=== PATIENT | male | born 1950 | race Caucasian/White ===

== ENCOUNTER 2024-11-18 18:58 | Observation (INO) ==
[2024-11-18 19:06] VITALS: TEMP 97.9
[2024-11-18 19:33] LABS: iSTAT Creatinine 1.1 mg/dl (0.6-1.3); iSTAT Hemoglobin 15.3 g/dl (14.0-18.0); iSTAT Ionized Calcium 1.17 mmol/l (1.12-1.32)
[2024-11-18 19:41] LABS: Basophils # (auto) 0.02 K/uL (0.00-0.20); Basophils % (auto) 0.4 %; Eosinophils # (auto) 0.13 K/uL (0.00-0.50); Eosinophils % (auto) 2.6 %; Hematocrit (blood only) 43.7 % (42.0-52.0); Immature Granulocytes # (auto) 0.02 K/uL (0.01-0.20); Immature Granulocytes % (auto) 0.4 %; Lymphocytes # (auto) 0.87 K/uL (1.20-3.40); Lymphocytes % (auto) 17.7 %; Mean Corpuscular Hemoglobin 31.3 pg (25.0-34.0); Mean Corpuscular Hgb Conc 34.3 g/dL (32.0-36.0); Mean Platelet Volume 8.9 fL (9.4-12.4); Monocytes # (auto) 0.53 K/uL (0.11-0.59); Monocytes % (auto) 10.8 %; Neutrophils # (auto) 3.35 K/uL (1.40-6.50); Neutrophils % (auto) 68.1 %; Platelet Count 238 K/uL (130-400); RDW Coefficient of Variation 13.2 % (11.5-14.5); RDW Standard Deviation 43.9 fL (36.4-46.3); White Blood Count 4.92 K/ul (4.8-10.8)
[2024-11-18 19:55] LABS: Albumin Globulin Ratio 1.2 (0.9-2); Albumin Level 4.1 gm/dl (3.4-5.0); BUN Creatinine Ratio 17.6 (10-20); Bilirubin,Total 0.4 mg/dl (0.2-1.0); Calcium 9.1 mg/dl (8.6-10.3); Creatinine Clr Calc Pharmacy 57.6 ml/min; Globulin 3.4 gm/dl (2.5-4.0); Potassium 4.1 mmol/L (3.5-5.1); Total Protein 7.5 gm/dl (6.0-8.3)
[2024-11-18 20:02] LABS: Troponin I High Sensitivity 4.2 pg/ml (0-20)
[2024-11-18 20:04] LABS: INR 0.9 (0.9-1.1); Partial Thromboplastin Time 26 Seconds (21-31); Prothrombin Time 10.3 Seconds (9.0-12.0)
--- NOTE | 2024-11-18 20:28 | Emergency Department Note ---
Impression & Plan Stroke-like symptoms ED Provider Note NAME: DEVORA FELIX AGE: 74 SEX: Male INFORMANT: Patient and family ED PROVIDER(S): Clint Young MD CHIEF COMPLAINT: Strokelike symptoms PLAN: Disposition: Admitted Outpatient prescription management: none Referral: None MEDICAL DECISION MAKING: Patient presented for strokelike symptoms that had resolved. His physical examination was nonfocal. He was moderately hypertensive. I did obtain his last primary care visit and his blood pressure was normal at that time. Denies any history of high blood pressure. Due to the resolution of symptoms the patient was not made a stroke alert but underwent an expedited stroke workup. He had unremarkable laboratory testing. His ECG was normal. Cardiac monitoring was unremarkable. Patient underwent CT imaging of the head as well as CT angiography of the head and neck. There was findings consistent with a left carotid stenosis of about 70% per radiology. No acute findings on the dry CT of the head. Patient was initially reluctant about staying in the hospital for stroke workup. After long discussion regarding his symptomatology as well as the findings on the workup the patient agreed. Family was in support of this admission and further testing in light of his symptoms. Consultation was made with Dr. Paco Irene, [facility] hospitalist service. Case discussed and diagnostics were reviewed. Did discuss ordering an MRI to help initiate the stroke workup and this was done. Patient was given 243 mg of oral aspirin as he had already taken a baby aspirin prior to coming in to the hospital. Care/management discussed with: manager surgical Level of care consideration(s): After review of the information above and other included data, I feel the patient requires escalation of care to admission Triage Nursing notes: reviewed and agree them. Vital Signs: reviewed and remarkable for hypertension Additional History obtained from: Patient's family. There was no confusion. No facial droop. Currently patient is acting normally and without deficit. Chronic Medical/Social Conditions affecting care: none Prior/ Outside/ External records reviewed: PCP note reviewed from November 29, 2023. Mild CKD noted as a medical history. Patient is a smoker. No significant abnormalities noted on his well check. Differential Diagnosis: CVA, TIA,Infection, dehydration, metabolic abnormality, hypo/hyperglycemia, electrolyte disturbance, anemia, hypoxia, cardiac sources, intracerebral event, toxicologic, neurologic, as well as other pathologies. Diagnostics, independently interpreted by me: ECG: Twelve-lead ECG reveals normal sinus rhythm at 66 beats per minute. No evidence of pericarditis, ischemia, ectopy, or dysrhythmia. Cardiac Monitoring: Cardiac monitoring ordered by me: The patient was placed on continuous cardiac monitoring and observed. It revealed a normal sinus rhythm at 78 beats per minute without ectopy or evidence of dysrhythmia. Medical decision rules: none Imaging studies: Head CT: A noncontrast CT scan of the head was performed and was negative for tumor, fracture, intracranial hemorrhage, or other acute pathology. I refer you to the EMR for further details. HPI: 74 year old Male arrives for evaluation of strokelike symptoms. This started just after 1800 hrs. tonight and is currently resolved. Patient states that it lasted about 10 minutes. The patient also notes the following associated symptoms, right arm weakness and right-sided numbness. He was having some balance issues as well. No trauma. The patient has taken aspirin for relieving factors. Current pain is rated as 0/10. Pt denies LOC, headache, fevers, chills, diaphoresis, visual changes, neck pain, chest pain, breathing difficulties, nausea, vomiting, abdominal pain, back pain, melena, hematochezia, urinary symptoms, lymphadenopathy, rash, or other complaints.. PAST MEDICAL HISTORY: See Below, hypertension PAST SURGICAL HISTORY: See Below, SOCIAL HISTORY: See Below, former smoker HOME MEDICATIONS: See Below ALLERGIES: See Below VITALS: See Below PHYSICAL EXAMINATION: GENERAL: Awake, alert, well-appearing, in no distress HENT: Normocephalic, atraumatic. Oropharynx unremarkable. EYES: Normal conjunctiva. Sclera non-icteric. PERRLA. EOMI. NECK: Inspection normal. Non-tender. Supple. No nuchal rigidity. FROM. No masses. RESPIRATORY: Clear to auscultation. No wheezes. No rales. Normal respiratory effort. CARDIAC: Normal rate. Normal rhythm. No murmurs. No rubs. Extremities warm and well perfused. Pulses equal. No JVD. GI: Soft, non-distended. No tenderness to palpation. No rebound or guarding. No masses. RECTAL: Deferred. MUSCULOSKELETAL: Atraumatic. Chest examination reveals no tenderness. The back is symmetrical on inspection without obvious abnormality. There is no CVA tenderness to palpation. No joint edema. LOWER EXTREMITIES: Calves are equal size bilaterally and non-tender. No edema. No discoloration. NEURO: Normal sensorium. No sensory or motor deficits noted. Cranial nerves II through XII intact. Speech normal. No drift. Normal rapid alternating movements. Normal [id number]. SKIN: No rash or jaundice noted. PROCEDURES: none CRITICAL CARE: none OBSERVATION NOTE: none Past Med/Surg History Problem List (Updated 11/18/24 @ 20:28 by Clint Young MD) Stroke-like symptoms (Acute) Social History Smoking Status: Former smoker Preferred Language: Telugu Feels Safe at Home: Yes Allergies Allergies Allergy/AdvReac Type Severity Reaction Status Date / Time No Known Allergies Allergy Unverified 11/18/24 19:24 Home Meds Home Medications Medication Instructions Recorded Confirmed No Known Home Medications 11/18/24 11/18/24 Results & Data (ED) Vital Signs Vital Signs - 24 hr 11/18/24 19:01 11/18/24 19:15 11/18/24 19:18 Temperature 36.6 C Temperature Source Oral Pulse Rate 81 Pulse Rate [Apical] 85 Pulse Rate from SpO2 Sensor Pulse Rhythm Regular Pulse Strength Normal Respiratory Rate 19 20 Respiratory Effort / Characteristics Non-Labored Spontaneous Non-Labored Spontaneous Respiratory Depth Normal Normal Respiratory Pattern Regular Regular Blood Pressure 159/91 H 182/91 H Blood Pressure [Left Arm] 182/91 H Blood Pressure Mean 113 129 Blood Pressure Mean [Left Arm] 121 Blood Pressure Position Sitting Pulse Oximetry 95 98 Oxygen Delivery Method Room Air Room Air Sepsis Recent Fever Within 48 Hours No Sepsis New/Unexplained Change in Mental Status N/A Sepsis Action Taken by Nursing No Action Required 11/18/24 19:18 11/18/24 19:24 11/18/24 19:30 Temperature Temperature Source Pulse Rate 78 83 Pulse Rate [Apical] Pulse Rate from SpO2 Sensor 81 Pulse Rhythm Pulse Strength Respiratory Rate 20 Respiratory Effort / Characteristics Respiratory Depth Respiratory Pattern Blood Pressure 152/95 H Blood Pressure [Left Arm] Blood Pressure Mean 127 Blood Pressure Mean [Left Arm] Blood Pressure Position Pulse Oximetry 98 Oxygen Delivery Method Sepsis Recent Fever Within 48 Hours Sepsis New/Unexplained Change in Mental Status Sepsis Action Taken by Nursing 11/18/24 19:52 11/18/24 19:54 11/18/24 20:03 Temperature Temperature Source Pulse Rate 90 88 Pulse Rate [Apical] Pulse Rate from SpO2 Sensor 88 89 Pulse Rhythm Pulse Strength Respiratory Rate 21 22 Respiratory Effort / Characteristics Respiratory Depth Respiratory Pattern Blood Pressure 170/80 H Blood Pressure [Left Arm] Blood Pressure Mean 109 Blood Pressure Mean [Left Arm] Blood Pressure Position Pulse Oximetry 97 98 Oxygen Delivery Method Sepsis Recent Fever Within 48 Hours Sepsis New/Unexplained Change in Mental Status Sepsis Action Taken by Nursing 11/18/24 20:11 11/18/24 20:15 11/18/24 20:18 Temperature Temperature Source Pulse Rate 81 Pulse Rate [Apical] Pulse Rate from SpO2 Sensor 82 Pulse Rhythm Pulse Strength Respiratory Rate 16 Respiratory Effort / Characteristics Respiratory Depth Respiratory Pattern Blood Pressure 124/88 154/92 H Blood Pressure [Left Arm] Blood Pressure Mean 96 122 Blood Pressure Mean [Left Arm] Blood Pressure Position Pulse Oximetry 97 Oxygen Delivery Method Sepsis Recent Fever Within 48 Hours Sepsis New/Unexplained Change in Mental Status Sepsis Action Taken by Nursing 11/18/24 20:21 11/18/24 20:36 11/18/24 20:45 Temperature Temperature Source Pulse Rate 82 84 Pulse Rate [Apical] Pulse Rate from SpO2 Sensor 82 83 Pulse Rhythm Pulse Strength Respiratory Rate 14 12 Respiratory Effort / Characteristics Respiratory Depth Respiratory Pattern Blood Pressure 156/93 H Blood Pressure [Left Arm] Blood Pressure Mean 114 Blood Pressure Mean [Left Arm] Blood Pressure Position Pulse Oximetry 96 97 Oxygen Delivery Method Sepsis Recent Fever Within 48 Hours Sepsis New/Unexplained Change in Mental Status Sepsis Action Taken by Nursing 11/18/24 20:45 11/18/24 21:00 11/18/24 21:00 Temperature Temperature Source Pulse Rate 81 Pulse Rate [Apical] 78 Pulse Rate from SpO2 Sensor 80 Pulse Rhythm Pulse Strength Respiratory Rate 16 20 Respiratory Effort / Characteristics Non-Labored Spontaneous Respiratory Depth Normal Respiratory Pattern Regular Blood Pressure 153/104 H Blood Pressure [Left Arm] 153/104 H Blood Pressure Mean 116 Blood Pressure Mean [Left Arm] 120 Blood Pressure Position Pulse Oximetry 99 96 Oxygen Delivery Method Room Air Sepsis Recent Fever Within 48 Hours Sepsis New/Unexplained Change in Mental Status Sepsis Action Taken by Nursing 11/18/24 21:06 11/18/24 21:15 11/18/24 21:15 Temperature Temperature Source Pulse Rate 75 86 Pulse Rate [Apical] Pulse Rate from SpO2 Sensor 75 84 Pulse Rhythm Pulse Strength Respiratory Rate 15 20 Respiratory Effort / Characteristics Respiratory Depth Respiratory Pattern Blood Pressure 164/90 H Blood Pressure [Left Arm] Blood Pressure Mean 113 Blood Pressure Mean [Left Arm] Blood Pressure Position Pulse Oximetry 98 94 Oxygen Delivery Method Sepsis Recent Fever Within 48 Hours Sepsis New/Unexplained Change in Mental Status Sepsis Action Taken by Nursing 11/18/24 21:24 11/18/24 21:30 11/18/24 21:33 Temperature Temperature Source Pulse Rate 81 84 Pulse Rate [Apical] Pulse Rate from SpO2 Sensor 83 84 Pulse Rhythm Pulse Strength Respiratory Rate 14 15 Respiratory Effort / Characteristics Respiratory Depth Respiratory Pattern Blood Pressure 156/92 H Blood Pressure [Left Arm] Blood Pressure Mean 99 Blood Pressure Mean [Left Arm] Blood Pressure Position Pulse Oximetry 95 95 Oxygen Delivery Method Sepsis Recent Fever Within 48 Hours Sepsis New/Unexplained Change in Mental Status Sepsis Action Taken by Nursing 11/18/24 21:42 11/18/24 21:51 11/18/24 22:00 Temperature Temperature Source Pulse Rate 74 73 76 Pulse Rate [Apical] Pulse Rate from SpO2 Sensor 74 75 Pulse Rhythm Pulse Strength Respiratory Rate 19 16 17 Respiratory Effort / Characteristics Respiratory Depth Respiratory Pattern Blood Pressure Blood Pressure [Left Arm] Blood Pressure Mean Blood Pressure Mean [Left Arm] Blood Pressure Position Pulse Oximetry 94 96 Oxygen Delivery Method Sepsis Recent Fever Within 48 Hours Sepsis New/Unexplained Change in Mental Status Sepsis Action Taken by Nursing 11/18/24 22:00 Temperature Temperature Source Pulse Rate Pulse Rate [Apical] Pulse Rate from SpO2 Sensor Pulse Rhythm Pulse Strength Respiratory Rate Respiratory Effort / Characteristics Respiratory Depth Respiratory Pattern Blood Pressure 157/90 H Blood Pressure [Left Arm] Blood Pressure Mean 127 Blood Pressure Mean [Left Arm] Blood Pressure Position Pulse Oximetry Oxygen Delivery Method Sepsis Recent Fever Within 48 Hours Sepsis New/Unexplained Change in Mental Status Sepsis Action Taken by Nursing Laboratory Data 11/18/24 19:17 11/18/24 19:17 Lab Results 11/18/24 11/18/24 11/18/24 Range/Units 19:16 19:17 19:20 WBC 4.92 (4.8-10.8) K/ul RBC 4.80 (4.70-6.10) M/uL Hgb 15.0 (14.0-18.0) g/dl POC Hgb 15.3 (14.0-18.0) g/dl Hct 43.7 (42.0-52.0) % POC Hct 45 (42-52) % MCV 91.0 (80.0-100.0) fL MCH 31.3 (25.0-34.0) pg MCHC 34.3 (32.0-36.0) g/dL RDW Std Deviation 43.9 (36.4-46.3) fL RDW Coeff of Peter 13.2 (11.5-14.5) % Plt Count 238 (130-400) K/uL MPV 8.9 L (9.4-12.4) fL Immature Gran % (Auto) 0.4 % Neut % (Auto) 68.1 % Lymph % (Auto) 17.7 % Johnson % (Auto) 10.8 % Eos % (Auto) 2.6 % Baso % (Auto) 0.4 % Neut # (Auto) 3.35 (1.40-6.50) K/uL Lymph # (Auto) 0.87 L (1.20-3.40) K/uL Johnson # (Auto) 0.53 (0.11-0.59) K/uL Eos # (Auto) 0.13 (0.00-0.50) K/uL Baso # (Auto) 0.02 (0.00-0.20) K/uL Immature Gran # (Auto) 0.02 (0.01-0.20) K/uL PT 10.3 (9.0-12.0) Seconds INR 0.9 (0.9-1.1) APTT 26 (21-31) Seconds PTT Ratio 1.0 POC Sodium 138 (135-144) mmol/L Sodium 137 (136-145) mmol/L POC Potassium 4.0 (3.3-5.0) mmol/L Potassium 4.1 (3.5-5.1) mmol/L POC Chloride 100 L (101-112) mmol/L Chloride 102 (98-107) mmol/L Carbon Dioxide 29 (21-32) mmol/L POC Total CO2 27 (24-31) mmol/L Anion Gap 6 (3-11) POC Anion Gap 16.0 (16-25) mmol/L POC BUN 17 (7-18) mg/dl BUN 18 (6-23) mg/dl Creatinine 1.02 (0.6-1.4) mg/dl POC Creatinine 1.1 (0.6-1.3) mg/dl Est Cr Clr Drug Dosing 57.6 ml/min eGFR 76.17 BUN/Creatinine Ratio 17.6 (10-20) Glucose 107 H (70-99(Fasting)) mg/dl POC Glucose 98 (70-99) mg/dl POC Glucose (other) 106 H (70-99) mg/dl Calcium 9.1 (8.6-10.3) mg/dl POC Ioniz Calcium Robert 1.17 (1.12-1.32) mmol/l Magnesium 2.0 (1.7-2.4) mg/dl Total Bilirubin 0.4 (0.2-1.0) mg/dl AST 20 (13-39) U/L ALT 19 (7-52) U/L Alkaline Phosphatase 72 (34-104) U/L Troponin I High Sens 4.2 (0-20) pg/ml Total Protein 7.5 (6.0-8.3) gm/dl Albumin 4.1 (3.4-5.0) gm/dl Globulin 3.4 (2.5-4.0) gm/dl Albumin/Globulin Ratio 1.2 (0.9-2) Blood Type Antibody Screen 11/18/24 Range/Units 19:57 WBC (4.8-10.8) K/ul RBC (4.70-6.10) M/uL Hgb (14.0-18.0) g/dl POC Hgb (14.0-18.0) g/dl Hct (42.0-52.0) % POC Hct (42-52) % MCV (80.0-100.0) fL MCH (25.0-34.0) pg MCHC (32.0-36.0) g/dL RDW Std Deviation (36.4-46.3) fL RDW Coeff of Peter (11.5-14.5) % Plt Count (130-400) K/uL MPV (9.4-12.4) fL Immature Gran % (Auto) % Neut % (Auto) % Lymph % (Auto) % Johnson % (Auto) % Eos % (Auto) % Baso % (Auto) % Neut # (Auto) (1.40-6.50) K/uL Lymph # (Auto) (1.20-3.40) K/uL Johnson # (Auto) (0.11-0.59) K/uL Eos # (Auto) (0.00-0.50) K/uL Baso # (Auto) (0.00-0.20) K/uL Immature Gran # (Auto) (0.01-0.20) K/uL PT (9.0-12.0) Seconds INR (0.9-1.1) APTT (21-31) Seconds PTT Ratio POC Sodium (135-144) mmol/L Sodium (136-145) mmol/L POC Potassium (3.3-5.0) mmol/L Potassium (3.5-5.1) mmol/L POC Chloride (101-112) mmol/L Chloride (98-107) mmol/L Carbon Dioxide (21-32) mmol/L POC Total CO2 (24-31) mmol/L Anion Gap (3-11) POC Anion Gap (16-25) mmol/L POC BUN (7-18) mg/dl BUN (6-23) mg/dl Creatinine (0.6-1.4) mg/dl POC Creatinine (0.6-1.3) mg/dl Est Cr Clr Drug Dosing ml/min eGFR BUN/Creatinine Ratio (10-20) Glucose (70-99(Fasting)) mg/dl POC Glucose (70-99) mg/dl POC Glucose (other) (70-99) mg/dl Calcium (8.6-10.3) mg/dl POC Ioniz Calcium Robert (1.12-1.32) mmol/l Magnesium (1.7-2.4) mg/dl Total Bilirubin (0.2-1.0) mg/dl AST (13-39) U/L ALT (7-52) U/L Alkaline Phosphatase (34-104) U/L Troponin I High Sens (0-20) pg/ml Total Protein (6.0-8.3) gm/dl Albumin (3.4-5.0) gm/dl Globulin (2.5-4.0) gm/dl Albumin/Globulin Ratio (0.9-2) Blood Type A Negative Antibody Screen NEGATIVE Administered Medications Discontinued Medications Aspirin (Aspirin Chew 324 Mg) 243 mg PO NOW STA Stop: 11/18/24 21:34 Last Admin: 11/18/24 21:43 Dose: 243 mg Documented By: [facility] Imaging Data Radiologist's Impression: Chest X-Ray 11/18/24 19:18 Exam(s): XR CXR 1 VIEW EXAM: XR Chest, 1 View CLINICAL HISTORY: Reason for exam: neuro deficit, acute stroke suspected. TECHNIQUE: Frontal view of the chest. COMPARISON: None. FINDINGS: Lungs: Bilateral bronchial wall and perihilar bronchovascular/interstitial mild thickening. No consolidation. Pleural space: No pleural effusion. No pneumothorax. An elevated right hemidiaphragm. Heart: Unremarkable. No cardiomegaly. Mediastinum: Unremarkable. Normal mediastinal contour. Bones/joints: Unremarkable. No acute fracture.. IMPRESSION: No acute cardiopulmonary process. . Electronically signed by: Lesley Steen MD, ALIREZAR 11/18/24 21:[address] 11/18/24 19:18 Exam(s): CT HEAD Without Contrast EXAM: CT Head Without Intravenous Contrast CLINICAL HISTORY: Reason for exam: neuro deficit, acute stroke suspected. TECHNIQUE: Axial computed tomography images of the head/brain without intravenous contrast. CTDI is 38.1 mGy and DLP is 624.41 mGy-cm. Automated exposure control was utilized for the study. A dose lowering technique was utilized adhering to the principles of ALARA. COMPARISON: None. FINDINGS: Diagnostic sensitivity of the exam is reduced by motion artifact. Brain: There is no acute intracranial hemorrhage, mass-effect or midline shift of structures. There are extensive periventricular/subcortical areas of decreased attenuation within the white matter tracts, most likely from chronic microvascular disease. Asymmetric moderately large focal zone with decreased density in the right frontal lobe, suggestive of chronic ischemic injury (series 2 image 19-21). Moderate cerebral atrophy with widening of the extra-axial spaces and ventricular dilatation. Bones/joints: Unremarkable. No acute fracture. Soft tissues: Unremarkable. Sinuses: Unremarkable as visualized. No acute sinusitis. IMPRESSION: No conclusive evidence of acute CVA. No acute intracranial hemorrhage. Significant periventricular/subcortical chronic ischemic white matter changes. Chronic involutional changes of the brain. If there is continued clinical concern, MRI brain is strongly recommended. . Electronically signed by: Lesley Steen MD, DARRIN 11/18/24 20:45 PM Head CTA 11/18/24 19:18 Exam(s): CTA HEAD With Contrast IV Amt: 117ML OPTIRAY 320 EXAM: CT Angiography Head With Intravenous Contrast CLINICAL HISTORY: Reason for exam: neuro deficit, acute stroke suspected. TECHNIQUE: Axial computed tomographic angiography images of the head with intravenous contrast. CTDI is 67.23 mGy and DLP is 1100.59 mGy-cm. Automated exposure control was utilized for the study. A dose lowering technique was utilized adhering to the principles of ALARA. MIP reconstructed images were created and reviewed. CONTRAST: Patient received 117ML OPTIRAY 320 of IV contrast COMPARISON: CT brain: FINDINGS: Right internal carotid artery: No acute findings. Intracranial segment is patent with no significant stenosis. No aneurysm. Right anterior cerebral artery: No occlusion or significant stenosis. No aneurysm. Right middle cerebral artery: No occlusion or significant stenosis. No aneurysm. Right posterior cerebral artery: No occlusion or significant stenosis. No aneurysm. Right vertebral artery: Unremarkable as visualized. Left internal carotid artery: No acute findings. Intracranial segment is patent with no significant stenosis. No aneurysm. Left anterior cerebral artery: No occlusion or significant stenosis. No aneurysm. Left middle cerebral artery: . No occlusion or significant stenosis. No aneurysm. Left posterior cerebral artery: No occlusion or significant stenosis. No aneurysm. Left vertebral artery: Unremarkable as visualized. Basilar artery: No occlusion or significant stenosis. No aneurysm. : . IMPRESSION: CTA head: No large vessel occlusions, significant stenosis or aneurysm.. Electronically signed by: Lesley Steen MD, DABR 11/18/24 20:32 PM Neck CTA 11/18/24 19:18 Exam(s): CTA NECK With Contrast IV Amt: 117ML OPTIRAY 320 EXAM: CT Angiography Neck With Intravenous Contrast CLINICAL HISTORY: Reason for exam: neuro deficit, acute stroke suspected. TECHNIQUE: Routine carotid CT angiography protocol was performed with intravenous contrast. NASCET criteria using the distal ICAs for comparison were used for evaluation of stenoses. CTDI is 67.23 mGy and DLP is 1100.59 mGy-cm. Automated exposure control was utilized for the study. A dose lowering technique was utilized adhering to the principles of ALARA. MIP reconstructed images were created and reviewed. CONTRAST: Patient received 117ML OPTIRAY 320 of IV contrast COMPARISON: None. FINDINGS: VASCULATURE: Right common carotid artery: No occlusion or significant stenosis. No dissection. Right carotid bulb: Small calcified plaques. Right internal carotid artery: Extracranial segment is patent with no occlusion or significant stenosis. No dissection. Right external carotid artery: No occlusion. Right vertebral artery: No occlusion or significant stenosis. No dissection. Left common carotid artery: No occlusion or significant stenosis. No dissection. Left carotid bulb/origin of the left internal carotid artery: Calcified atherosclerotic plaques with > 70% stenosis (series 700 image 34, series 9 image 57). Left internal carotid artery: Extracranial segment is patent with no occlusion or significant stenosis. No dissection. Left external carotid artery: Unremarkable. No occlusion. Left vertebral artery: No occlusion or significant stenosis. No dissection. NECK: Bones/joints: C3 vertebral mild anterolisthesis. No acute fracture. Moderately advanced mid/lower cervical spondylosis. Multilevel uncovertebral facet arthrosis. Soft tissues: Unremarkable. Lung apices: Biapical pleural parenchymal thickening and scarring. A 6 mm noncalcified pulmonary nodule seen anteriorly in the right upper lobe (series 7 image 4).. CAROTID STENOSIS REFERENCE USING NASCET CRITERIA: % ICA stenosis = (1 - narrowest ICA diameter/diameter of distal cervical ICA) x 100. Mild - <50% stenosis. Moderate - 50-69% stenosis. Severe - 70-94% stenosis. Near occlusion - 95-99% stenosis. Occluded - 100% stenosis. IMPRESSION: Left carotid bulb and proximal most left internal carotid artery calcified/noncalcified atherosclerosis with > 70% luminal narrowing. Otherwise no hemodynamically significant stenosis, aneurysm or other acute pathology noted. A 6 mm noncalcified right upper lung lobe nodule. Follow-up with short- term CT chest advised. . Electronically signed by: Lesley Steen MD, DABR 11/18/24 21:02 PM Discharge Plan Visit Data Chief Complaint: TIA Symptoms Stated Complaint: RT FLANK NUMB, ARM NUMB ED Provider: Clint Young Discharge Problem: Stroke-like symptoms Forms Stand Alone Forms: My [facility] Prescriptions Prescriptions: No Action No Known Home Medications Referrals Referrals: PCP,NO [Physician] -
--- NOTE | 2024-11-18 20:33 | CT Scan Report ---
Exam(s): CTA HEAD With Contrast IV Amt: 117ML OPTIRAY 320 EXAM: CT Angiography Head With Intravenous Contrast CLINICAL HISTORY: Reason for exam: neuro deficit, acute stroke suspected. TECHNIQUE: Axial computed tomographic angiography images of the head with intravenous contrast. CTDI is 67.23 mGy and DLP is 1100.59 mGy-cm. Automated exposure control was utilized for the study. A dose lowering technique was utilized adhering to the principles of ALARA. MIP reconstructed images were created and reviewed. CONTRAST: Patient received 117ML OPTIRAY 320 of IV contrast COMPARISON: CT brain: FINDINGS: Right internal carotid artery: No acute findings. Intracranial segment is patent with no significant stenosis. No aneurysm. Right anterior cerebral artery: No occlusion or significant stenosis. No aneurysm. Right middle cerebral artery: No occlusion or significant stenosis. No aneurysm. Right posterior cerebral artery: No occlusion or significant stenosis. No aneurysm. Right vertebral artery: Unremarkable as visualized. Left internal carotid artery: No acute findings. Intracranial segment is patent with no significant stenosis. No aneurysm. Left anterior cerebral artery: No occlusion or significant stenosis. No aneurysm. Left middle cerebral artery: . No occlusion or significant stenosis. No aneurysm. Left posterior cerebral artery: No occlusion or significant stenosis. No aneurysm. Left vertebral artery: Unremarkable as visualized. Basilar artery: No occlusion or significant stenosis. No aneurysm. : . IMPRESSION: CTA head: No large vessel occlusions, significant stenosis or aneurysm.. Electronically signed by: Lesley Steen MD, DABR 11/18/24 20:32 PM
--- NOTE | 2024-11-18 20:46 | CT Scan Report ---
Exam(s): CT HEAD Without Contrast EXAM: CT Head Without Intravenous Contrast CLINICAL HISTORY: Reason for exam: neuro deficit, acute stroke suspected. TECHNIQUE: Axial computed tomography images of the head/brain without intravenous contrast. CTDI is 38.1 mGy and DLP is 624.41 mGy-cm. Automated exposure control was utilized for the study. A dose lowering technique was utilized adhering to the principles of ALARA. COMPARISON: None. FINDINGS: Diagnostic sensitivity of the exam is reduced by motion artifact. Brain: There is no acute intracranial hemorrhage, mass-effect or midline shift of structures. There are extensive periventricular/subcortical areas of decreased attenuation within the white matter tracts, most likely from chronic microvascular disease. Asymmetric moderately large focal zone with decreased density in the right frontal lobe, suggestive of chronic ischemic injury (series 2 image 19-21). Moderate cerebral atrophy with widening of the extra-axial spaces and ventricular dilatation. Bones/joints: Unremarkable. No acute fracture. Soft tissues: Unremarkable. Sinuses: Unremarkable as visualized. No acute sinusitis. IMPRESSION: No conclusive evidence of acute CVA. No acute intracranial hemorrhage. Significant periventricular/subcortical chronic ischemic white matter changes. Chronic involutional changes of the brain. If there is continued clinical concern, MRI brain is strongly recommended. . Electronically signed by: Lesley Steen MD, DABR 11/18/24 20:45 PM
--- NOTE | 2024-11-18 21:03 | CT Scan Report ---
Exam(s): CTA NECK With Contrast IV Amt: 117ML OPTIRAY 320 EXAM: CT Angiography Neck With Intravenous Contrast CLINICAL HISTORY: Reason for exam: neuro deficit, acute stroke suspected. TECHNIQUE: Routine carotid CT angiography protocol was performed with intravenous contrast. NASCET criteria using the distal ICAs for comparison were used for evaluation of stenoses. CTDI is 67.23 mGy and DLP is 1100.59 mGy-cm. Automated exposure control was utilized for the study. A dose lowering technique was utilized adhering to the principles of ALARA. MIP reconstructed images were created and reviewed. CONTRAST: Patient received 117ML OPTIRAY 320 of IV contrast COMPARISON: None. FINDINGS: VASCULATURE: Right common carotid artery: No occlusion or significant stenosis. No dissection. Right carotid bulb: Small calcified plaques. Right internal carotid artery: Extracranial segment is patent with no occlusion or significant stenosis. No dissection. Right external carotid artery: No occlusion. Right vertebral artery: No occlusion or significant stenosis. No dissection. Left common carotid artery: No occlusion or significant stenosis. No dissection. Left carotid bulb/origin of the left internal carotid artery: Calcified atherosclerotic plaques with > 70% stenosis (series 700 image 34, series 9 image 57). Left internal carotid artery: Extracranial segment is patent with no occlusion or significant stenosis. No dissection. Left external carotid artery: Unremarkable. No occlusion. Left vertebral artery: No occlusion or significant stenosis. No dissection. NECK: Bones/joints: C3 vertebral mild anterolisthesis. No acute fracture. Moderately advanced mid/lower cervical spondylosis. Multilevel uncovertebral facet arthrosis. Soft tissues: Unremarkable. Lung apices: Biapical pleural parenchymal thickening and scarring. A 6 mm noncalcified pulmonary nodule seen anteriorly in the right upper lobe (series 7 image 4).. CAROTID STENOSIS REFERENCE USING NASCET CRITERIA: % ICA stenosis = (1 - narrowest ICA diameter/diameter of distal cervical ICA) x 100. Mild - <50% stenosis. Moderate - 50-69% stenosis. Severe - 70-94% stenosis. Near occlusion - 95-99% stenosis. Occluded - 100% stenosis. IMPRESSION: Left carotid bulb and proximal most left internal carotid artery calcified/noncalcified atherosclerosis with > 70% luminal narrowing. Otherwise no hemodynamically significant stenosis, aneurysm or other acute pathology noted. A 6 mm noncalcified right upper lung lobe nodule. Follow-up with short- term CT chest advised. . Electronically signed by: Lesley Steen MD, DABR 11/18/24 21:02 PM
--- NOTE | 2024-11-18 21:06 | XRay Report ---
Exam(s): XR CXR 1 VIEW EXAM: XR Chest, 1 View CLINICAL HISTORY: Reason for exam: neuro deficit, acute stroke suspected. TECHNIQUE: Frontal view of the chest. COMPARISON: None. FINDINGS: Lungs: Bilateral bronchial wall and perihilar bronchovascular/interstitial mild thickening. No consolidation. Pleural space: No pleural effusion. No pneumothorax. An elevated right hemidiaphragm. Heart: Unremarkable. No cardiomegaly. Mediastinum: Unremarkable. Normal mediastinal contour. Bones/joints: Unremarkable. No acute fracture.. IMPRESSION: No acute cardiopulmonary process. . Electronically signed by: Lesley Steen MD, DABR 11/18/24 21:05 PM
[2024-11-18] MEDS: ASPIRIN CHEW 324 MG PO STA (21:43)
--- NOTE | 2024-11-19 00:51 | History & Physical Report ---
Date of Service November 19, 2024 Assessment & Plan (1) TIA (transient ischemic attack): Plan: TIA Left carotid artery disease Incidental finding of SPN right Hyperglycemia rule out DM At risk alcohol intake Past tobacco abuse OBS Medical telemetry Neurochecks Aspirin and statin Rx for secondary stroke prevention and for patient's PVD MRI brain, TTE for stroke workup Neurology consult Re: TIA Outpatient vascular surgery consult Re: Left carotid artery disease (No inpatient coverage this week.) Check hemoglobin A1c CHARLEE S at risk protocol, DT precautions Outpatient follow-up surveillance imaging for SPN DVT prophylaxis. Lovenox subcu Full code Patient requests for to be given updates regarding care. Ms. Diane Rose, contact #[phone]. Text document was generated using [employer] voice recognition software. It may contain grammatical or spelling errors. Kindly contact undersigned for clarification of any documentation item in question. History of Present Illness Chief Complaint: Transient right-sided weakness/numbness Primary Care Provider: Fidel Dunlap MD History obtained from patient, family, and records. Medical history significant for past tobacco abuse. Last night around dinnertime, patient noted transient right sided arm and leg weakness/numbness. Denies headache symptoms. Denies chest pain, SOB. Noncompliant with home aspirin Rx. No previous episodes. Patient brought by family to ER for evaluation. Medical History as above Surgical History : None Family History : Stroke, heart disease, COPD, stomach cancer Personal/Social history : Past tobacco abuse, 2 beers daily (patient/family de nies abuse concerns), retired surface coal mine worker Allergies Allergy/AdvReac Type Severity Reaction Status Date / Time No Known Allergies Allergy Unverified 11/18/24 19:24 Home Medications Medication Instructions Recorded Confirmed Type No Known Home Medications 11/18/24 11/18/24 History Past Med/Surg History Problem List (Updated 11/19/24 @ 10:20 by Paco Irene MD) TIA (transient ischemic attack) Stroke-like symptoms (Acute) Social History Smoking Status: Never smoker Second Hand Exposure: No; Do You Dip or Chew Tobacco: No; Tobacco Cessation Education Requested by Patient: No Hx Alcohol Use: Yes Alcohol type: beer Hx Substance Use: No Preferred Language: Venezuelan Communication Ability: Effective Marketing Regional Consultant Required: No Beliefs That Will Affect Care: None Current Living Situation: Spouse Other Information That Helps Us Care for You: No Feels Safe at Home: Yes Safety Concerns: Feels Safe At This Time Assistive Devices: None Review of Systems Review of Systems: As per HPI, all other systems reviewed and negative Physical Exam Physical Exam: GENERAL: Comfortable, pleasant, slightly hard of hearing, no respiratory distress SKIN: Normal color, warm HEENT: [place] palpebral conjunctivae, no ptosis, moist buccal mucosa NECK : Supple, no tenderness CHEST : CTA, no tenderness HEART : RRR, no obvious murmurs ABDOMEN: Some distention, nontender EXTREMITIES : No LE swelling/tenderness, no other conspicuous deformities noted NEUROLOGIC : Coherent, no facial asymmetry, no other gross focality Results & Data Results & Data Vital Signs (Past 12 Hours) Vital Signs Temp Pulse Pulse Resp BP BP Pulse Ox 11/18/24 23:39 77 11/18/24 23:27 75 13 145/93 H 97 11/18/24 22:42 72 22 95 11/18/24 22:36 76 15 98 11/18/24 22:30 148/92 H 11/18/24 22:06 78 17 95 11/18/24 22:00 157/90 H 11/18/24 22:00 157/90 H 11/18/24 22:00 76 17 96 11/18/24 21:51 73 16 94 11/18/24 21:42 74 19 11/18/24 21:33 84 15 95 11/18/24 21:30 156/92 H 11/18/24 21:24 81 14 95 11/18/24 21:15 164/90 H 11/18/24 21:15 86 20 94 11/18/24 21:06 75 15 98 11/18/24 21:00 153/104 H 11/18/24 21:00 78 20 153/104 H 96 11/18/24 20:45 81 16 99 11/18/24 20:45 156/93 H 11/18/24 20:36 84 12 97 11/18/24 20:21 82 14 96 11/18/24 20:18 81 16 97 11/18/24 20:15 154/92 H 11/18/24 20:11 124/88 11/18/24 20:03 88 22 98 11/18/24 19:54 90 21 97 11/18/24 19:52 170/80 H 11/18/24 19:30 152/95 H 11/18/24 19:24 83 20 98 11/18/24 19:18 78 11/18/24 19:18 85 20 182/91 H 98 11/18/24 19:15 182/91 H 11/18/24 19:01 36.6 C 81 19 159/91 H 95 O2 Del Method 11/18/24 23:39 11/18/24 23:27 Room Air 11/18/24 22:42 11/18/24 22:36 11/18/24 22:30 11/18/24 22:06 11/18/24 22:00 11/18/24 22:00 11/18/24 22:00 11/18/24 21:51 11/18/24 21:42 11/18/24 21:33 11/18/24 21:30 11/18/24 21:24 11/18/24 21:15 11/18/24 21:15 11/18/24 21:06 11/18/24 21:00 11/18/24 21:00 Room Air 11/18/24 20:45 11/18/24 20:45 11/18/24 20:36 11/18/24 20:21 11/18/24 20:18 11/18/24 20:15 11/18/24 20:11 11/18/24 20:03 11/18/24 19:54 11/18/24 19:52 11/18/24 19:30 11/18/24 19:24 11/18/24 19:18 11/18/24 19:18 Room Air 11/18/24 19:15 11/18/24 19:01 Room Air Laboratory Results Laboratory Results WBC 4.92 K/ul (4.8-10.8) 11/18/24 19:17 RBC 4.80 M/uL (4.70-6.10) 11/18/24 19:17 Hgb 15.0 g/dl (14.0-18.0) 11/18/24 19:17 POC Hgb 15.3 g/dl (14.0-18.0) 11/18/24 19:20 Hct 43.7 % (42.0-52.0) 11/18/24 19:17 POC Hct 45 % (42-52) 11/18/24 19:20 MCV 91.0 fL (80.0-100.0) 11/18/24 19:17 MCH 31.3 pg (25.0-34.0) 11/18/24 19:17 MCHC 34.3 g/dL (32.0-36.0) 11/18/24 19:17 RDW Std Deviation 43.9 fL (36.4-46.3) 11/18/24 19:17 RDW Coeff of Peter 13.2 % (11.5-14.5) 11/18/24 19:17 Plt Count 238 K/uL (130-400) 11/18/24 19:17 MPV 8.9 fL (9.4-12.4) L 11/18/24 19:17 Immature Gran % (Auto) 0.4 % 11/18/24 19:17 Neut % (Auto) 68.1 % 11/18/24 19:17 Lymph % (Auto) 17.7 % 11/18/24 19:17 [place] % (Auto) 10.8 % 11/18/24 19:17 Eos % (Auto) 2.6 % 11/18/24 19:17 Baso % (Auto) 0.4 % 11/18/24 19:17 Neut # (Auto) 3.35 K/uL (1.40-6.50) 11/18/24 19:17 Lymph # (Auto) 0.87 K/uL (1.20-3.40) L 11/18/24 19:17 [place] # (Auto) 0.53 K/uL (0.11-0.59) 11/18/24 19:17 Eos # (Auto) 0.13 K/uL (0.00-0.50) 11/18/24 19:17 Baso # (Auto) 0.02 K/uL (0.00-0.20) 11/18/24 19:17 Immature Gran # (Auto) 0.02 K/uL (0.01-0.20) 11/18/24 19:17 PT 10.3 Seconds (9.0-12.0) 11/18/24 19:17 INR 0.9 (0.9-1.1) 11/18/24 19:17 APTT 26 Seconds (21-31) 11/18/24 19:17 PTT Ratio 1.0 11/18/24 19:17 POC Sodium 138 mmol/L (135-144) 11/18/24 19:20 Sodium 137 mmol/L (136-145) 11/18/24 19:17 POC Potassium 4.0 mmol/L (3.3-5.0) 11/18/24 19:20 Potassium 4.1 mmol/L (3.5-5.1) 11/18/24 19:17 POC Chloride 100 mmol/L (101-112) L 11/18/24 19:20 Chloride 102 mmol/L (98-107) 11/18/24 19:17 Carbon Dioxide 29 mmol/L (21-32) 11/18/24 19:17 POC Total CO2 27 mmol/L (24-31) 11/18/24 19:20 Anion Gap 6 (3-11) 11/18/24 19:17 POC Anion Gap 16.0 mmol/L (16-25) 11/18/24 19:20 POC BUN 17 mg/dl (7-18) 11/18/24 19:20 BUN 18 mg/dl (6-23) 11/18/24 19:17 Creatinine 1.02 mg/dl (0.6-1.4) 11/18/24 19:17 POC Creatinine 1.1 mg/dl (0.6-1.3) 11/18/24 19:20 Est Cr Clr Drug Dosing 57.6 ml/min 11/18/24 19:17 eGFR 76.17 11/18/24 19:17 BUN/Creatinine Ratio 17.6 (10-20) 11/18/24 19:17 Glucose 107 mg/dl (70-99(Fasting)) H 11/18/24 19:17 POC Glucose 98 mg/dl (70-99) 11/18/24 19:16 POC Glucose (other) 106 mg/dl (70-99) H 11/18/24 19:20 Calcium 9.1 mg/dl (8.6-10.3) 11/18/24 19:17 POC Ioniz Calcium Robert 1.17 mmol/l (1.12-1.32) 11/18/24 19:20 Magnesium 2.0 mg/dl (1.7-2.4) 11/18/24 19:17 Total Bilirubin 0.4 mg/dl (0.2-1.0) 11/18/24 19:17 AST 20 U/L (13-39) 11/18/24 19:17 ALT 19 U/L (7-52) 11/18/24 19:17 Alkaline Phosphatase 72 U/L (34-104) 11/18/24 19:17 Troponin I High Sens 4.2 pg/ml (0-20) 11/18/24 19:17 Total Protein 7.5 gm/dl (6.0-8.3) 11/18/24 19:17 Albumin 4.1 gm/dl (3.4-5.0) 11/18/24 19:17 Globulin 3.4 gm/dl (2.5-4.0) 11/18/24 19:17 Albumin/Globulin Ratio 1.2 (0.9-2) 11/18/24 19:17 Blood Type A Negative 11/18/24 19:57 Antibody Screen NEGATIVE 11/18/24 19:57 Impressions Chest X-Ray 11/18/24 19:18 Exam(s): XR CXR 1 VIEW EXAM: XR Chest, 1 View CLINICAL HISTORY: Reason for exam: neuro deficit, acute stroke suspected. TECHNIQUE: Frontal view of the chest. COMPARISON: None. FINDINGS: Lungs: Bilateral bronchial wall and perihilar bronchovascular/interstitial mild thickening. No consolidation. Pleural space: No pleural effusion. No pneumothorax. An elevated right hemidiaphragm. Heart: Unremarkable. No cardiomegaly. Mediastinum: Unremarkable. Normal mediastinal contour. Bones/joints: Unremarkable. No acute fracture.. IMPRESSION: No acute cardiopulmonary process. . Electronically signed by: Lesley Steen MD, DABR 11/18/24 21:[address] 11/18/24 19:18 Exam(s): CT HEAD Without Contrast EXAM: CT Head Without Intravenous Contrast CLINICAL HISTORY: Reason for exam: neuro deficit, acute stroke suspected. TECHNIQUE: Axial computed tomography images of the head/brain without intravenous contrast. CTDI is 38.1 mGy and DLP is 624.41 mGy-cm. Automated exposure control was utilized for the study. A dose lowering technique was utilized adhering to the principles of ALARA. COMPARISON: None. FINDINGS: Diagnostic sensitivity of the exam is reduced by motion artifact. Brain: There is no acute intracranial hemorrhage, mass-effect or midline shift of structures. There are extensive periventricular/subcortical areas of decreased attenuation within the white matter tracts, most likely from chronic microvascular disease. Asymmetric moderately large focal zone with decreased density in the right frontal lobe, suggestive of chronic ischemic injury (series 2 image 19-21). Moderate cerebral atrophy with widening of the extra-axial spaces and ventricular dilatation. Bones/joints: Unremarkable. No acute fracture. Soft tissues: Unremarkable. Sinuses: Unremarkable as visualized. No acute sinusitis. IMPRESSION: No conclusive evidence of acute CVA. No acute intracranial hemorrhage. Significant periventricular/subcortical chronic ischemic white matter changes. Chronic involutional changes of the brain. If there is continued clinical concern, MRI brain is strongly recommended. . Electronically signed by: Lesley Steen MD, DABR 11/18/24 20:45 PM Head CTA 11/18/24 19:18 Exam(s): CTA HEAD With Contrast IV Amt: 117ML OPTIRAY 320 EXAM: CT Angiography Head With Intravenous Contrast CLINICAL HISTORY: Reason for exam: neuro deficit, acute stroke suspected. TECHNIQUE: Axial computed tomographic angiography images of the head with intravenous contrast. CTDI is 67.23 mGy and DLP is 1100.59 mGy-cm. Automated exposure control was utilized for the study. A dose lowering technique was utilized adhering to the principles of ALARA. MIP reconstructed images were created and reviewed. CONTRAST: Patient received 117ML OPTIRAY 320 of IV contrast COMPARISON: CT brain: FINDINGS: Right internal carotid artery: No acute findings. Intracranial segment is patent with no significant stenosis. No aneurysm. Right anterior cerebral artery: No occlusion or significant stenosis. No aneurysm. Right middle cerebral artery: No occlusion or significant stenosis. No aneurysm. Right posterior cerebral artery: No occlusion or significant stenosis. No aneurysm. Right vertebral artery: Unremarkable as visualized. Left internal carotid artery: No acute findings. Intracranial segment is patent with no significant stenosis. No aneurysm. Left anterior cerebral artery: No occlusion or significant stenosis. No aneurysm. Left middle cerebral artery: . No occlusion or significant stenosis. No aneurysm. Left posterior cerebral artery: No occlusion or significant stenosis. No aneurysm. Left vertebral artery: Unremarkable as visualized. Basilar artery: No occlusion or significant stenosis. No aneurysm. : . IMPRESSION: CTA head: No large vessel occlusions, significant stenosis or aneurysm.. Electronically signed by: Lesley Steen MD, DABR 11/18/24 20:32 PM Neck CTA 11/18/24 19:18 Exam(s): CTA NECK With Contrast IV Amt: 117ML OPTIRAY 320 EXAM: CT Angiography Neck With Intravenous Contrast CLINICAL HISTORY: Reason for exam: neuro deficit, acute stroke suspected. TECHNIQUE: Routine carotid CT angiography protocol was performed with intravenous contrast. NASCET criteria using the distal ICAs for comparison were used for evaluation of stenoses. CTDI is 67.23 mGy and DLP is 1100.59 mGy-cm. Automated exposure control was utilized for the study. A dose lowering technique was utilized adhering to the principles of ALARA. MIP reconstructed images were created and reviewed. CONTRAST: Patient received 117ML OPTIRAY 320 of IV contrast COMPARISON: None. FINDINGS: VASCULATURE: Right common carotid artery: No occlusion or significant stenosis. No dissection. Right carotid bulb: Small calcified plaques. Right internal carotid artery: Extracranial segment is patent with no occlusion or significant stenosis. No dissection. Right external carotid artery: No occlusion. Right vertebral artery: No occlusion or significant stenosis. No dissection. Left common carotid artery: No occlusion or significant stenosis. No dissection. Left carotid bulb/origin of the left internal carotid artery: Calcified atherosclerotic plaques with > 70% stenosis (series 700 image 34, series 9 image 57). Left internal carotid artery: Extracranial segment is patent with no occlusion or significant stenosis. No dissection. Left external carotid artery: Unremarkable. No occlusion. Left vertebral artery: No occlusion or significant stenosis. No dissection. NECK: Bones/joints: C3 vertebral mild anterolisthesis. No acute fracture. Moderately advanced mid/lower cervical spondylosis. Multilevel uncovertebral facet arthrosis. Soft tissues: Unremarkable. Lung apices: Biapical pleural parenchymal thickening and scarring. A 6 mm noncalcified pulmonary nodule seen anteriorly in the right upper lobe (series 7 image 4).. CAROTID STENOSIS REFERENCE USING NASCET CRITERIA: % ICA stenosis = (1 - narrowest ICA diameter/diameter of distal cervical ICA) x 100. Mild - <50% stenosis. Moderate - 50-69% stenosis. Severe - 70-94% stenosis. Near occlusion - 95-99% stenosis. Occluded - 100% stenosis. IMPRESSION: Left carotid bulb and proximal most left internal carotid artery calcified/noncalcified atherosclerosis with > 70% luminal narrowing. Otherwise no hemodynamically significant stenosis, aneurysm or other acute pathology noted. A 6 mm noncalcified right upper lung lobe nodule. Follow-up with short- term CT chest advised. . Electronically signed by: Lesley Steen MD, DABR 11/18/24 21:02 PM Diagnostic Findings EKG as per my interpretation :Rate 80, NSR, normal axis, no ischemia
[2024-11-19] MEDS ORDERED: PHARMACIST DISCHARGE MED REC CONSULT PRN (01:17)
--- NOTE | 2024-11-19 01:20 | Magnetic Resonance Report ---
Exam(s): MRI HEAD Without Contrast EXAM: MR Head Without Intravenous Contrast CLINICAL HISTORY: Reason for exam: right arm weakness, stroke like symptoms. TECHNIQUE: Magnetic resonance images of the head/brain without intravenous contrast in multiple planes. COMPARISON: CT brain: 11/18/2024 FINDINGS: Brain: There is no restricted diffusion to suggest acute infarction. FLAIR imaging demonstrates significant periventricular and multifocal scattered subcortical signal hyperintensity, which are nonspecific but can be seen with chronic small vessel ischemic disease/age-related white matter degeneration, but can seen with other etiologies including chronic migraine headaches and other demyelinating diseases. No mass. No hemorrhage. Moderate cerebral atrophy with widening of the extra-axial spaces/ventricular dilatation. Basilar cisterns are patent. Normal void signal is present within the carotid and basilar arteries. Bones/joints: Unremarkable. No acute fracture. Sinuses: Unremarkable as visualized. No acute sinusitis. Left mastoid air cells: Air-fluid level/mastoid effusion/acute mastoiditis. Mild/moderate right mastoiditis. Orbits: Unremarkable as visualized. Other findings: . IMPRESSION: . No evidence of acute infarction, hemorrhage or mass. Demonstrates significant periventricular and scattered subcortical white matter changes, which are nonspecific but can be seen with chronic small vessel ischemic disease and age-related white matter degeneration. Left acute mastoiditis with an air-fluid level.. Electronically signed by: Lesley Steen MD, ALIREZAR 11/19/24 01:19 AM
[2024-11-19] MEDS ORDERED: LORazepam 2 MG/1 ML VIAL IV PRN (01:22)
[2024-11-19] MEDS ORDERED: PROMETHAZINE 6.25 MG/50.25 ML BAG IV PRN (01:22)
[2024-11-19] MEDS ORDERED: ACETAMINOPHEN 325 MG TAB PO PRN (01:22)
[2024-11-19] MEDS: THIAMINE HCL 100 MG in SYRINGE 9 ML IV STA (02:22)
[2024-11-19 05:25] LABS: Basophils # (auto) 0.01 K/uL (0.00-0.20); Basophils % (auto) 0.2 %; Eosinophils # (auto) 0.07 K/uL (0.00-0.50); Eosinophils % (auto) 1.5 %; Hematocrit (blood only) 41.7 % (42.0-52.0); Hemoglobin 14.6 g/dl (14.0-18.0); Immature Granulocytes # (auto) 0.02 K/uL (0.01-0.20); Immature Granulocytes % (auto) 0.4 %; Lymphocytes # (auto) 0.63 K/uL (1.20-3.40); Lymphocytes % (auto) 13.1 %; Mean Corpuscular Hemoglobin 31.5 pg (25.0-34.0); Mean Corpuscular Volume 90.1 fL (80.0-100.0); Mean Platelet Volume 9.3 fL (9.4-12.4); Monocytes % (auto) 8.3 %; Neutrophils # (auto) 3.69 K/uL (1.40-6.50); Neutrophils % (auto) 76.5 %; Platelet Count 220 K/uL (130-400); RDW Coefficient of Variation 13.2 % (11.5-14.5); RDW Standard Deviation 43.4 fL (36.4-46.3); Red Blood Count 4.63 M/uL (4.70-6.10); White Blood Count 4.82 K/ul (4.8-10.8)
[2024-11-19 05:40] LABS: BUN Creatinine Ratio 18.5 (10-20); Calcium 8.7 mg/dl (8.6-10.3); Chol HDL Ratio 3.1 (0-5); Creatinine Clr Calc Pharmacy 63.9 ml/min; Potassium 4.1 mmol/L (3.5-5.1)
[2024-11-19 07:10] VITALS: RESP 16
[2024-11-19 07:26] LABS: Estimated Average Glucose 131 mg/dl; Hemoglobin A1C 6.2 % (4.5-5.6)
[2024-11-19] MEDS: ATORVASTATIN 40 MG TAB PO SCH (08:21)
[2024-11-19] MEDS: ASPIRIN 81 MG ECTAB PO SCH (08:21)
[2024-11-19] MEDS: ENOXAPARIN INJ 40 MG/0.4 ML SYR SQ SCH (08:21)
[2024-11-19] MEDS: FOLIC ACID 1 MG TAB PO SCH (08:21)
[2024-11-19] MEDS: THIAMINE HCL 100 MG TAB PO SCH (08:22)
--- NOTE | 2024-11-19 09:22 | Electrocardiogram Report ---
Test Reason : Blood Pressure : */* mmHG Vent. Rate : 79 BPM Atrial Rate : 79 BPM P-R Int : 162 ms QRS Dur : 78 ms QT Int : 348 ms P-R-T Axes : 62 21 48 degrees QTcB Int : 399 ms Normal sinus rhythm Normal ECG No previous ECGs available Confirmed by Renita Pulido (Cathy) on 11/19/2024 9:22:15 AM Referred By: REFERRED SELF Confirmed By: Renita Pulido
--- NOTE | 2024-11-19 14:41 | Neurology Consultation ---
Date of Consultation November 19, 2024 Assessment & Plan (1) TIA (transient ischemic attack): Suspect that the patient's symptoms are related to a TIA, hypoperfusion after a meal,? 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 Recommend aspirin 81 mg in addition to Plavix 75 mg in addition to atorvastatin 80 mg for 21 days. Recommend urgernt referral to neuroendovascular surgeryas outpatient for furtherevaluation and possible intervention. Telehealth Consultation Telehealth Information Telehealth Information: I performed this visit using a real-time telehealth connection between my location and the patients location ([facility]). After connecting through interactive tele-video, patient was identified by name and date of and/or wristband check.Patient (or authorized healthcare medical collections representative) was informed that this was a telemedicine visit and it was being conducted confidentially over secure lines. My office door was closed and no one else was present in the room with me.Patient (or authorized healthcare medical collections representative) provided consent to proceed with the visit, expressed an understanding of privacy and security of the telemedicine visit, and gave permission to have a hospital medical collections representative in the room in order to assist with the visit and to conduct portions of the visit, as needed. I informed the patient (or authorized healthcare medical collections representative) that I reviewed their record and presented the opportunity for them to ask any questions regarding the visit today. The patient agreed to participate. History of Present Illness Reason for Consultation: TIA Requesting Physician: Jacques Duron MD Attending Physician: Domi Hanna MD History of Present Illness Mr Almaguer is a 74-year-old male patient with PMH of chronic alcohol abuse, prior history of tobacco use, DM? Who presented to the emergency room yesterday after transient right-sided weakness. The patient reports that he was sitting eating a sandwich, and after he was finished, he experienced numbness in his right arm, that he wanted to stand up and his right leg gave way he sat back and in few moments his symptoms improved. He denies any blurriness of his vision, any weakness on the left side, slurring speech. He denies any prior history of similar events, denies any recent illnesses, denies being dehydrated, denies any chest pain or shortness of breath. Allergies Allergy/AdvReac Type Severity Reaction Status Date / Time No Known Allergies Allergy Unverified 12/29/24 19:24 Home Medications Medication Instructions Recorded Confirmed Type No Known Home Medications 11/18/24 11/18/24 History Patient History Social History Smoking Status: Never smoker Second Hand Exposure: No; Do You Dip or Chew Tobacco: No; Tobacco Cessation Education Requested by Patient: No Hx Alcohol Use: Yes Alcohol type: beer Hx Substance Use: No Preferred Language: Turkmen Communication Ability: Effective Helicopter Dispatcher Required: No Beliefs That Will Affect Care: None Current Living Situation: Spouse Other Information That Helps Us Care for You: No Feels Safe at Home: Yes Safety Concerns: Feels Safe At This Time Assistive Devices: None Review of Systems Constitutional: Patient denies weight loss, fever, chills, and night sweats Eyes: Patient denies change in vision, tearing, pain, and redness ENT: Patient denies pain, bleeding, rhinorrhea, and dysphagia Cardiovascular: Patient denies chest pain, palpitation, dyspnea at rest, and dyspnea with exertion Respiratory: Patient denies shortness of breath, cough, wheezing, and productive cough GI: Patient denies reflux, pain, constipation, and diarrhea Skin: Patient denies rash, dryness, and itching Allergies/Immune System: Patient denies rhinorrhea, seasonal allergies, reaction to current MEDS, and joint swelling Endocrine: Patient denies weight loss, weight gain, temperature intolerance, and excessive thirst Neurological: All negative unless mentioned in the HPI Physical Exam General Constitutional: Appearance normally developed Head and face: normocephalic and atraumatic Eyes: no ptosis, no anisocoria, and no dysconjugate gaze Respiratory: normal effort Cardiovascular: regular rhythm and regular rate Abdomen: non distended Skin: no rashes, lesions, or ulcers noted Psychiatric: normal judgement and insight, normal mood, and normal affect NEUROLOGIC EXAMINATION: Mental Status:alert, oriented to time, place, person, normal recent memory, normal remote memory, normal attention span, normal concentration, normal language and normal fund of knowledge Cranial Nerves: CN 2 - no visual defect on confrontation and pupils round, equal, reactive to light CN 3, 4, 6 - extra-ocular movements intact and no nystagmus CN 5 - facial sensation intact CN 7 - no facial asymmetry CN 8 - intact hearing CN 9, 10 - palate symmetric, normal gag CN 11 - good shoulder shrug CN 12 - tongue midline MOTOR: Strength was at least antigravity throughout, Pronator drift was absent and There were no abnormal movements SENSATION: intact and symmetric to pinprick, light touch, vibration and joint position GAIT: stable, no ataxia and can perform tandem walking COORDINATION: no ataxia with finger to nose testing and heel to blue testing REFLEXES: cannot assess over telemedicine NIH Stroke Scale: 1a. Level of Consciousness: alert = 0 1b. LOC Questions: (month, age): both correct = 0 1c. LOC Commands (open and close eyes, make fist and let go using non-paretic hand): obeys both correctly = 0 2. Best Gaze (eyes open and patient follows examiner's finger or face): normal = 0 3. Visual (visual threat or finger counting in each quadrant): no loss = 0 4. Facial Palsy (show teeth, raise eye brows and squeeze eyes shut, or grimace symmetry in a comatose patient): normal = 0 5a. Motor Arm (extend arm (palms down) to 90 degrees and score drift/movement (10 seconds) - Left: no drift = 0 5b. Motor Arm: (extend arm (palms down) to 90 degrees and score drift/movement (10 seconds) - Right: no drift = 0 6a. Motor Leg (elevate leg 30 degrees and score drift/ movement (5 seconds) - Left: no drift = 0 6b. Motor Leg (elevate leg 30 degrees and score drift/ movement (5 seconds) - Right: no drift = 0 7. Limb Ataxia (finger to nose, heel down blue): absent = 0 8. Sensory (pin prick to face, arm, trunk and leg, compare side to side): normal = 0 9. Best Language: no aphasia = 0 10. Dysarthria (evaluate speech clarity by patient repeating listed words): normal articulation = 0 11. Extinction and Inattention: no neglect = 0 Total: 0 Results & Data Vital Signs (Past 12 Hours) Vital Signs Pulse Pulse Resp BP BP Pulse Ox Pulse Ox 11/19/24 07:10 61 11/19/24 07:09 82 16 140/76 97 11/19/24 06:36 56 L 20 95 11/19/24 06:30 161/79 H 11/19/24 06:00 131/85 11/19/24 05:31 96 12/30/24 05:30 60 19 148/88 H 95 11/19/24 05:00 142/91 H 11/19/24 04:57 63 14 11/19/24 04:36 64 16 98 11/19/24 04:30 142/88 H 11/19/24 04:00 63 20 151/86 H 97 11/19/24 03:33 64 21 132/81 95 11/19/24 03:03 65 21 143/82 H 96 O2 Del Method O2 Del Method 11/19/24 07:10 11/19/24 07:09 Room Air 11/19/24 06:36 Room Air 11/19/24 06:30 11/19/24 06:00 11/19/24 05:31 Room Air 11/19/24 05:30 Room Air 11/19/24 05:00 11/19/24 04:57 11/19/24 04:36 11/19/24 04:30 11/19/24 04:00 Room Air 11/19/24 03:33 11/19/24 03:03 Laboratory Results Laboratory Results - last 24 hr 11/18/24 11/18/24 11/18/24 19:16 19:17 19:20 WBC 4.92 RBC 4.80 Hgb 15.0 POC Hgb 15.3 Hct 43.7 POC Hct 45 MCV 91.0 MCH 31.3 MCHC 34.3 RDW Std Deviation 43.9 RDW Coeff of Peter 13.2 Plt Count 238 MPV 8.9 L Immature Gran % (Auto) 0.4 Neut % (Auto) 68.1 Lymph % (Auto) 17.7 Winston % (Auto) 10.8 Eos % (Auto) 2.6 Baso % (Auto) 0.4 Neut # (Auto) 3.35 Lymph # (Auto) 0.87 L Winston # (Auto) 0.53 Eos # (Auto) 0.13 Baso # (Auto) 0.02 Immature Gran # (Auto) 0.02 PT 10.3 INR 0.9 APTT 26 PTT Ratio 1.0 POC Sodium 138 Sodium 137 POC Potassium 4.0 Potassium 4.1 POC Chloride 100 L Chloride 102 Carbon Dioxide 29 POC Total CO2 27 Anion Gap 6 POC Anion Gap 16.0 POC BUN 17 BUN 18 Creatinine 1.02 POC Creatinine 1.1 Est Cr Clr Drug Dosing 57.6 eGFR 76.17 BUN/Creatinine Ratio 17.6 Glucose 107 H POC Glucose 98 POC Glucose (other) 106 H Estimat Average Glucose Hemoglobin A1c Calcium 9.1 POC Ioniz Calcium Robert 1.17 Magnesium 2.0 Total Bilirubin 0.4 AST 20 ALT 19 Alkaline Phosphatase 72 Troponin I High Sens 4.2 Total Protein 7.5 Albumin 4.1 Globulin 3.4 Albumin/Globulin Ratio 1.2 Triglycerides Cholesterol LDL Cholesterol, Calc VLDL Cholesterol, Calc HDL Cholesterol Cholesterol/HDL Ratio Blood Type Antibody Screen 11/18/24 11/19/24 19:57 04:57 WBC 4.82 RBC 4.63 L Hgb 14.6 POC Hgb Hct 41.7 L POC Hct MCV 90.1 MCH 31.5 MCHC 35.0 RDW Std Deviation 43.4 RDW Coeff of Peter 13.2 Plt Count 220 MPV 9.3 L Immature Gran % (Auto) 0.4 Neut % (Auto) 76.5 Lymph % (Auto) 13.1 Winston % (Auto) 8.3 Eos % (Auto) 1.5 Baso % (Auto) 0.2 Neut # (Auto) 3.69 Lymph # (Auto) 0.63 L Winston # (Auto) 0.40 Eos # (Auto) 0.07 Baso # (Auto) 0.01 Immature Gran # (Auto) 0.02 PT INR APTT PTT Ratio POC Sodium Sodium 137 POC Potassium Potassium 4.1 POC Chloride Chloride 104 Carbon Dioxide 28 POC Total CO2 Anion Gap 5 POC Anion Gap POC BUN BUN 17 Creatinine 0.92 POC Creatinine Est Cr Clr Drug Dosing 63.9 eGFR 86.21 BUN/Creatinine Ratio 18.5 Glucose 98 POC Glucose POC Glucose (other) Estimat Average Glucose 131 Hemoglobin A1c 6.2 H Calcium 8.7 POC Ioniz Calcium Robert Magnesium Total Bilirubin AST ALT Alkaline Phosphatase Troponin I High Sens Total Protein Albumin Globulin Albumin/Globulin Ratio Triglycerides 58 Cholesterol 172 LDL Cholesterol, Calc 105 VLDL Cholesterol, Calc 12 HDL Cholesterol 55 Cholesterol/HDL Ratio 3.1 Blood Type A Negative Antibody Screen NEGATIVE Diagnostic Findings Chest X-Ray 11/18/24 19:18 Exam(s): XR CXR 1 VIEW EXAM: XR Chest, 1 View CLINICAL HISTORY: Reason for exam: neuro deficit, acute stroke suspected. TECHNIQUE: Frontal view of the chest. COMPARISON: None. FINDINGS: Lungs: Bilateral bronchial wall and perihilar bronchovascular/interstitial mild thickening. No consolidation. Pleural space: No pleural effusion. No pneumothorax. An elevated right hemidiaphragm. Heart: Unremarkable. No cardiomegaly. Mediastinum: Unremarkable. Normal mediastinal contour. Bones/joints: Unremarkable. No acute fracture.. IMPRESSION: No acute cardiopulmonary process. . Electronically signed by: Lesley Steen MD, DABR 11/18/24 21:[address] 11/18/24 19:18 Exam(s): CT HEAD Without Contrast EXAM: CT Head Without Intravenous Contrast CLINICAL HISTORY: Reason for exam: neuro deficit, acute stroke suspected. TECHNIQUE: Axial computed tomography images of the head/brain without intravenous contrast. CTDI is 38.1 mGy and DLP is 624.41 mGy-cm. Automated exposure control was utilized for the study. A dose lowering technique was utilized adhering to the principles of ALARA. COMPARISON: None. FINDINGS: Diagnostic sensitivity of the exam is reduced by motion artifact. Brain: There is no acute intracranial hemorrhage, mass-effect or midline shift of structures. There are extensive periventricular/subcortical areas of decreased attenuation within the white matter tracts, most likely from chronic microvascular disease. Asymmetric moderately large focal zone with decreased density in the right frontal lobe, suggestive of chronic ischemic injury (series 2 image 19-21). Moderate cerebral atrophy with widening of the extra-axial spaces and ventricular dilatation. Bones/joints: Unremarkable. No acute fracture. Soft tissues: Unremarkable. Sinuses: Unremarkable as visualized. No acute sinusitis. IMPRESSION: No conclusive evidence of acute CVA. No acute intracranial hemorrhage. Significant periventricular/subcortical chronic ischemic white matter changes. Chronic involutional changes of the brain. If there is continued clinical concern, MRI brain is strongly recommended. . Electronically signed by: Lesley Steen MD, DABR 11/18/24 20:45 PM Head CTA 11/18/24 19:18 Exam(s): CTA HEAD With Contrast IV Amt: 117ML OPTIRAY 320 EXAM: CT Angiography Head With Intravenous Contrast CLINICAL HISTORY: Reason for exam: neuro deficit, acute stroke suspected. TECHNIQUE: Axial computed tomographic angiography images of the head with intravenous contrast. CTDI is 67.23 mGy and DLP is 1100.59 mGy-cm. Automated exposure control was utilized for the study. A dose lowering technique was utilized adhering to the principles of ALARA. MIP reconstructed images were created and reviewed. CONTRAST: Patient received 117ML OPTIRAY 320 of IV contrast COMPARISON: CT brain: FINDINGS: Right internal carotid artery: No acute findings. Intracranial segment is patent with no significant stenosis. No aneurysm. Right anterior cerebral artery: No occlusion or significant stenosis. No aneurysm. Right middle cerebral artery: No occlusion or significant stenosis. No aneurysm. Right posterior cerebral artery: No occlusion or significant stenosis. No aneurysm. Right vertebral artery: Unremarkable as visualized. Left internal carotid artery: No acute findings. Intracranial segment is patent with no significant stenosis. No aneurysm. Left anterior cerebral artery: No occlusion or significant stenosis. No aneurysm. Left middle cerebral artery: . No occlusion or significant stenosis. No aneurysm. Left posterior cerebral artery: No occlusion or significant stenosis. No aneurysm. Left vertebral artery: Unremarkable as visualized. Basilar artery: No occlusion or significant stenosis. No aneurysm. : . IMPRESSION: CTA head: No large vessel occlusions, significant stenosis or aneurysm.. Electronically signed by: Lesley Steen MD, DABR 11/18/24 20:32 PM Neck CTA 11/18/24 19:18 Exam(s): CTA NECK With Contrast IV Amt: 117ML OPTIRAY 320 EXAM: CT Angiography Neck With Intravenous Contrast CLINICAL HISTORY: Reason for exam: neuro deficit, acute stroke suspected. TECHNIQUE: Routine carotid CT angiography protocol was performed with intravenous contrast. NASCET criteria using the distal ICAs for comparison were used for evaluation of stenoses. CTDI is 67.23 mGy and DLP is 1100.59 mGy-cm. Automated exposure control was utilized for the study. A dose lowering technique was utilized adhering to the principles of ALARA. MIP reconstructed images were created and reviewed. CONTRAST: Patient received 117ML OPTIRAY 320 of IV contrast COMPARISON: None. FINDINGS: VASCULATURE: Right common carotid artery: No occlusion or significant stenosis. No dissection. Right carotid bulb: Small calcified plaques. Right internal carotid artery: Extracranial segment is patent with no occlusion or significant stenosis. No dissection. Right external carotid artery: No occlusion. Right vertebral artery: No occlusion or significant stenosis. No dissection. Left common carotid artery: No occlusion or significant stenosis. No dissection. Left carotid bulb/origin of the left internal carotid artery: Calcified atherosclerotic plaques with > 70% stenosis (series 700 image 34, series 9 image 57). Left internal carotid artery: Extracranial segment is patent with no occlusion or significant stenosis. No dissection. Left external carotid artery: Unremarkable. No occlusion. Left vertebral artery: No occlusion or significant stenosis. No dissection. NECK: Bones/joints: C3 vertebral mild anterolisthesis. No acute fracture. Moderately advanced mid/lower cervical spondylosis. Multilevel uncovertebral facet arthrosis. Soft tissues: Unremarkable. Lung apices: Biapical pleural parenchymal thickening and scarring. A 6 mm noncalcified pulmonary nodule seen anteriorly in the right upper lobe (series 7 image 4).. CAROTID STENOSIS REFERENCE USING NASCET CRITERIA: % ICA stenosis = (1 - narrowest ICA diameter/diameter of distal cervical ICA) x 100. Mild - <50% stenosis. Moderate - 50-69% stenosis. Severe - 70-94% stenosis. Near occlusion - 95-99% stenosis. Occluded - 100% stenosis. IMPRESSION: Left carotid bulb and proximal most left internal carotid artery calcified/noncalcified atherosclerosis with > 70% luminal narrowing. Otherwise no hemodynamically significant stenosis, aneurysm or other acute pathology noted. A 6 mm noncalcified right upper lung lobe nodule. Follow-up with short- term CT chest advised. . Electronically signed by: Lesley Steen MD, DABR 11/18/24 21:02 PM Brain MRI 11/18/24 21:29 Exam(s): MRI HEAD Without Contrast EXAM: MR Head Without Intravenous Contrast CLINICAL HISTORY: Reason for exam: right arm weakness, stroke like symptoms. TECHNIQUE: Magnetic resonance images of the head/brain without intravenous contrast in multiple planes. COMPARISON: CT brain: 11/18/2024 FINDINGS: Brain: There is no restricted diffusion to suggest acute infarction. FLAIR imaging demonstrates significant periventricular and multifocal scattered subcortical signal hyperintensity, which are nonspecific but can be seen with chronic small vessel ischemic disease/age-related white matter degeneration, but can seen with other etiologies including chronic migraine headaches and other demyelinating diseases. No mass. No hemorrhage. Moderate cerebral atrophy with widening of the extra-axial spaces/ventricular dilatation. Basilar cisterns are patent. Normal void signal is present within the carotid and basilar arteries. Bones/joints: Unremarkable. No acute fracture. Sinuses: Unremarkable as visualized. No acute sinusitis. Left mastoid air cells: Air-fluid level/mastoid effusion/acute mastoiditis. Mild/moderate right mastoiditis. Orbits: Unremarkable as visualized. Other findings: . IMPRESSION: . No evidence of acute infarction, hemorrhage or mass. Demonstrates significant periventricular and scattered subcortical white matter changes, which are nonspecific but can be seen with chronic small vessel ischemic disease and age-related white matter degeneration. Left acute mastoiditis with an air-fluid level.. Electronically signed by: Lesley Steen MD, DABR 11/19/24 01:19 AM Medications Administered Home Medications Medication Instructions Recorded Confirmed Last Taken No Known Home Medications 11/18/24 11/18/24 Unknown Active Medications Generic Name Dose Route Start Last Admin Trade Name Freq PRN Reason Stop Dose Admin Aspirin 81 mg 11/19/24 09:00 11/19/24 08:21 Aspirin 81 Mg Ectab PO 12/19/24 08:59 81 mg QAM RIMMA Administration Atorvastatin Calcium 40 mg 11/19/24 09:00 11/19/24 08:21 Atorvastatin 40 Mg Tab PO 12/19/24 08:59 40 mg QAM RIMMA Administration Enoxaparin Sodium 40 mg 11/19/24 09:00 11/19/24 08:21 Enoxaparin Inj 40 Mg/0.4 Ml Syr SQ 12/19/24 08:59 40 mg QAM RIMMA Administration Folic Acid 1 mg 11/19/24 09:00 11/19/24 08:21 Folic Acid 1 Mg Tab PO 12/19/24 08:59 1 mg QAM RIMMA Administration Thiamine HCl 100 mg 11/19/24 09:00 11/19/24 08:22 Thiamine Hcl 100 Mg Tab PO 12/19/24 08:59 100 mg QAM RIMMA Administration ECG Additional Comments: NSR Echo , : EF:55-60%, grade I Diastolic dysfunction
[2024-11-19] MEDS: CLOPIDOGREL BISULFATE 75 MG TAB PO ONE (17:14)
[2024-11-19] MEDS ORDERED: STROKE PATIENT DISCHARGE STA (17:19)
--- NOTE | 2024-11-19 17:26 | Discharge Summary ---
Date of Service November 19, 2024 Admission HPI Per Admitting Provider History obtained from patient, family, and records. Medical history significant for past tobacco abuse. Last night around dinnertime, patient noted transient right sided arm and leg weakness/numbness. Denies headache symptoms. Denies chest pain, SOB. Noncompliant with home aspirin Rx. No previous episodes. Patient brought by family to ER for evaluation. 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 Admission Exam Per Admitting Provider GENERAL: Comfortable, pleasant, slightly hard of hearing, no respiratory distress SKIN: Normal color, warm HEENT: [place] palpebral conjunctivae, no ptosis, moist buccal mucosa NECK : Supple, no tenderness CHEST : CTA, no tenderness HEART : RRR, no obvious murmurs ABDOMEN: Some distention, nontender EXTREMITIES : No LE swelling/tenderness, no other conspicuous deformities noted NEUROLOGIC : Coherent, no facial asymmetry, no other gross focality Principal Diagnosis TIA Left ICA stenosis Discharge Exam GENERAL: Comfortable, pleasant, slightly hard of hearing, no respiratory distress SKIN: Normal color, warm HEENT: [place] palpebral conjunctivae, no ptosis, moist buccal mucosa NECK : Supple, no tenderness CHEST : CTA, no tenderness HEART : RRR, no obvious murmurs ABDOMEN: Some distention, nontender EXTREMITIES : No LE swelling/tenderness, no other conspicuous deformities noted NEUROLOGIC : Coherent, no facial asymmetry, no other gross focality. b/l limbs power 5/5. Discharge Data Allergies Allergy/AdvReac Type Severity Reaction Status Date / Time No Known Allergies Allergy Unverified 11/18/24 19:24 Consultations 11/18/24 21:29 ED Decision to Admit Stat 11/19/24 01:26 Consult Neurology Routine Ordered Studies 11/18/24 19:18 CT angio head w con Stat CT angio neck with con Stat CT head/brain wo con Stat 11/18/24 21:29 MR brain wo con Stat Hospital Course (1) TIA (transient ischemic attack): Per prior attending with addendum: TIA Left carotid artery disease Incidental finding of SPN right Hyperglycemia rule out DM At risk alcohol intake Past tobacco abuse OBS Medical telemetry Neurochecks Aspirin and statin Rx for secondary stroke prevention and for patient's PVD MRI brain, TTE for stroke workup Neurology consult Re: TIA Outpatient vascular surgery consult Re: Left carotid artery disease (No inpatient coverage this week.) Check hemoglobin A1c CHARLEE S at risk protocol, DT precautions Outpatient follow-up surveillance imaging for SPN DVT prophylaxis. Lovenox subcu Full code Patient requests for to be given updates regarding care. Ms. Diane Rose, contact #[phone]. Text document was generated using [employer] voice recognition software. It may contain grammatical or spelling errors. Kindly contact undersigned for clarification of any documentation item in question. addendum 11/19/2024: Patient was seen and examined at bedside as a follow-up of TIA and left ICA stenosis. Neurology evaluated the patient, recommends outpatient neuroendovascular surgery evaluation. DAPT for 21 days and then baby aspirin daily. Recommends atorvastatin 80 mg daily. Patient does not have any new neurological signs and symptoms. He reports resolution of his presenting signs and symptoms. He is hemodynamically stable and would like to go home. Cardiac imaging and head and neck imaging reviewed. Patient states that he will not quit drinking alcohol. Patient is being discharged with following instruction at the point of discharge: Follow-up with your primary care physician within a week time and likely you will need labs CBC/CMP/magnesium/phosphorus. As discussed at the bedside, you were evaluated for stroke. You will need aspirin and Plavix for 21 days, then continue daily aspirin. You will also need to be started on statin, you will need to follow-up with neurology in 2 to 4 weeks time upon discharge. Coordinate with your PCP office to set up the referral. As discussed at the bedside, you will need urgent evaluation by neuroendovascular surgeon, call your PCP office tomorrow to set up the referral. You were noted to have 6 mm right upper lobe nodule in the lung. You will need repeat CT scan of the chest in 3 to 6 months time to follow-up on this. Coordinate with your PCP office to set up the test. As discussed at the bedside, recommend refraining away from alcohol. As discussed at the bedside, you have prediabetes, encourage lifestyle modification/alcohol cessation/healthy diet/daily exercise routine. You will need repeat A1c in 3 months time, coordinate with your PCP office to set up the test. Follow-up with your PCP office for long-term monitoring/management. Take your medications as prescribed. Please make sure that you are able to get your medications today by calling your pharmacy before you leave the hospital so that your treatment continuity is not broken. total time spent: 35 min Home Health Attestation I certify that this patient is under my care and that I, or a physicians case management assistant working with me, had a face to-face encounter that meets the home health [id number] encounter requirements with this patient. The encounter with the patient was in whole, or in part, for the following medical condition, which is the primary reason for home health care (list medical condition): I certify that, based on my findings, the following services are medically necessary home health services: My clinical findings support the need for the above services because: Further, I certify that my clinical findings support that this patient is homebound (i.e. absences from home require considerable and taxing effort and are for medical reasons or restoration services or infrequently or of short duration when for other reasons) because: Certification for Home Health Services: Based on the above findings, I certify that this patient is confined to the home and needs intermittent correction care, physical therapy and/or speech therapy or continues to need occupational therapy. The patient is under my care, and I have initiated the establishment of the plan of care. This patient will be followed by a physician who will periodically review the plan of care. Total Time Total Time Spent Total Time Spent (In Minutes): 35 Discharge Plan Discharge Items Patient Disposition: Home - Self-Care Reason For Visit: TIA (PRIVATE RM PER FAM REQ) Discharge Diagnosis: TIA Left ICA stenosis Activity: Resume your previous activity Non-emergency contact: Primary Care Provider Call non-emergency contact if: you have any medication questions Follow-up/Referrals: Fidel Dunlap MD [Primary Care Provider] - Diet: Heart Healthy and Low Sodium (2gm) Addtl Attending Provider Instructions: Follow-up with your primary care physician within a week time and likely you will need labs CBC/CMP/magnesium/phosphorus. As discussed at the bedside, you were evaluated for stroke. You will need aspirin and Plavix for 21 days, then continue daily aspirin. You will also need to be started on statin, you will need to follow-up with neurology in 2 to 4 weeks time upon discharge. Coordinate with your PCP office to set up the referral. As discussed at the bedside, you will need urgent evaluation by neuroendovascular surgeon, call your PCP office tomorrow to set up the referral. You were noted to have 6 mm right upper lobe nodule in the lung. You will need repeat CT scan of the chest in 3 to 6 months time to follow-up on this. Coordinate with your PCP office to set up the test. As discussed at the bedside, recommend refraining away from alcohol. As discussed at the bedside, you have prediabetes, encourage lifestyle modification/alcohol cessation/healthy diet/daily exercise routine. You will need repeat A1c in 3 months time, coordinate with your PCP office to set up the test. Follow-up with your PCP office for long-term monitoring/management. Take your medications as prescribed. Please make sure that you are able to get your medications today by calling your pharmacy before you leave the hospital so that your treatment continuity is not broken. Pending Studies at Discharge: No Stand-Alone Forms: My [facility], Smoking Cessation, Medications to Prevent Stroke Medications and DC Order Prescriptions: New clopidogrel 75 mg Tablet 75 mg PO QAM 20 Days Qty: 20 0RF atorvastatin 80 mg tablet 80 mg PO DAILY Qty: 30 0RF aspirin 81 mg Tablet,Delayed Release (Dr/Ec) 81 mg PO QAM Qty: 30 0RF folic acid 1 mg Tablet 1 mg PO QAM Qty: 30 0RF multivitamin with folic acid [Daily-Fred (with folic acid)] 400 mcg Tablet 1 tab PO QAM Qty: 30 0RF thiamine HCl (vitamin B1) 100 mg Tablet 100 mg PO QAM Qty: 30 0RF Discharge Orders: Discharge Order (Routine); Ordered 11/19/24 Ordered By: Domi Hanna Admission Data Admit Date/Time: 11/19/24 00:51 Attending Provider: Domi Hanna Admit Provider: Paco Irene Primary Care Provider: Fidel Dunlap Other Providers: Paco Irene; Randi Yarbrough; Clint Pinzon; Randi Tomlinson; Luciano Nichole; Renato Chung; Parrish Donovan; Kenyon Angelo; Sara Prather; Ugo Rodriguez; Chino Thibodeaux; Ronal Mcgrath; Migel Aponte; Satya,Ambreen; Tasneem Leyva; Kenyon Salas; Kathryn Duarte
[2024-11-19 17:45] VITALS: BP 152/84; PULSE 69; O2SAT 95
[2024-11-20] MEDS ORDERED: MULTIVITAMIN TAB PO SCH (09:00)
[2024-11-20] MEDS ORDERED: ATORVASTATIN 40 MG TAB PO SCH (09:00)
[2024-11-20] MEDS ORDERED: CLOPIDOGREL BISULFATE 75 MG TAB PO SCH (09:00)
--- NOTE | 2024-11-20 14:56 | Pharmacy Report ---
Pharmacist Stroke Counseling - Date of Service November 20, 2024 - Scope: Pharmacy has been consulted to provide medication discharge counseling for this patient admitted with [ischemic stroke] [hemorrhagic stroke] [transient ischemic attack] as per the Pharmacist Discharge Counseling for Stroke Patients Pro tocol. - Medications on Discharge: New Rx's Medication Instructions Recorded aspirin 81 mg tablet,delayed 81 mg PO QAM #30 tabs 11/19/24 release atorvastatin 80 mg tablet 80 mg PO DAILY #30 tabs 24 clopidogrel 75 mg tablet 75 mg PO QAM 20 days #20 tabs 24 folic acid 1 mg tablet 1 mg PO QAM #30 tabs 24 multivitamin with folic acid 400 1 tab PO QAM #30 tabs 24 mcg tablet (Daily-Fred (with folic acid)) thiamine HCl (vitamin B1) 100 mg 100 mg PO QAM #30 tabs 11/19/24 tablet - Action: The above medications, specifically ones for stroke treatment/prophylaxis, have been reviewed in detail with the patient and/or patient claim representative(s) prior to discharge. This includes indication, common adverse reactions, drug interactions, and medication administration. Medication counseling has been employed using the teach-back method to ensure understanding. - Outcome: The patient and/or patient claim representative(s) have demonstrated understanding of the medications. 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 He has appt with PCP next week and is aware to bring updated med list with him. No questions/concerns from patient at this time. Thank you for allowing pharmacy to be involved in the care of this patient. Please call [phone] with any additional questions
--- NOTE | 2024-11-20 20:48 | Electrocardiogram Report ---
Test Reason : Blood Pressure : */* mmHG Vent. Rate : 66 BPM Atrial Rate : 66 BPM P-R Int : 144 ms QRS Dur : 78 ms QT Int : 364 ms P-R-T Axes : 42 18 38 degrees QTcB Int : 381 ms Normal sinus rhythm Normal ECG When compared with ECG of 18-Nov-2024 19:16, No significant change was found Confirmed by Ty Jesus ([id number]) on 11/20/2024 8:48:41 PM Referred By: REFERRED SELF Confirmed By: Ty Jesus
== END 2024-11-19 17:28 | disposition home or self-care (01) ==
LOC: EDINP 18:58 → ED 18:58 → EDINP 11-19 04:13